=== PATIENT | male | born 1970 | race Caucasian/White ===

== ENCOUNTER 2016-07-21 13:32 | Emergency (ER) | payer OTHER ==
[~2016-07-21] VITALS: Ht 177.8 cm; Wt 80.0 kg
[~2016-07-21 13:32] MED LIST: OLAN5TAB5 PO
[2016-07-21 13:34] VITALS: Ht 177.8 cm; Wt 80.0 kg
[2016-07-21] MEDS ORDERED: SOD CHLORIDE 0.9% 1,000 ML IV STA (14:27)
[2016-07-21] MEDS ORDERED: LORAZEPAM 2 MG INJ IV STA (14:27)
[2016-07-21 15:02] LABS: ADD SCAN DIFF NO
[2016-07-21 15:03] LABS: ABNORMAL IP MESSAGE 1; BASOPHILS % 0.4 % (0.0-2.0); EOSINOPHILS % 0.3 % (0.0-7.0); HEMATOCRIT 34.1 % (42.0-52.0); HEMOGLOBIN 11.8 g/dl (14.0-18.0); LYMPHOCYTES # 0.6 10^3/ul (0.8-2.9); LYMPHOCYTES % 8.2 % (15.0-51.0); MEAN CORPUSCULAR HEMOGLOBIN 29.1 pg (29.0-33.0); MEAN CORPUSCULAR HGB CONC 34.6 g/dl (32.0-37.0); MEAN PLATELET VOLUME 7.8 fl (7.4-10.4); MONOCYTE # 0.7 10^3/ul (0.3-0.9); MONOCYTES % 9.6 % (0.0-11.0); NEUTROPHIL # 5.7 10^3/ul (1.6-7.5); NEUTROPHILS % 81.2 % (39.0-77.0); PLATELET COUNT 209 10^3/UL (140-415); RED BLOOD COUNT 4.06 10^6/ul (4.70-6.10); RED CELL DISTRIBUTION WIDTH 13.2 % (11.5-14.5)
--- NOTE | 2016-07-21 15:04 | ERD ---
ER Documentation Chief Complaint Date/Time DATE: 07/21/16 TIME: 15:01 Chief Complaint psych evaluation HPI 45-year-old man complains of using too much methamphetamines. He has a long history of methamphetamine abuse and has been using it today. He denies suicidal homicidal ideation, no fevers or chills, no vomiting or diarrhea. He says he wants to undergo detox. ROS All systems reviewed and are negative except as per history of present illness. Medications Home Meds Reported Medications Olanzapine* (Zyprexa*) Unknown Strength Tablet, PO DAILY, #30 TAB PT WAS INCARSARATED AND RELASED ON ZYPREXA 05/02/15 Allergies Allergies: Coded Allergies: No Known Allergies (Verified Allergy, Mild, 06/04/15) PMhx/Soc Psychiatric illness and drug abuse History of Surgery: Yes (TONSILLECTOMY) Anesthesia Reaction: No Hx Neurological Disorder: No Hx Respiratory Disorders: No Hx Cardiac Disorders: No Hx Psychiatric Problems: Yes (schizophrenia bipolar) Hx Miscellaneous Medical Probl: Yes (HEP C) Hx Alcohol Use: Yes Hx Substance Use: Yes (MARIJUANA meth) Hx Tobacco Use: Yes (1 PACK PER 3 DAYS) Smoking Status: Current every day smoker FmHx Family History: No diabetes Physical Exam Vitals Vital Signs Date Time Temp Pulse Resp B/P Pulse Ox O2 Delivery O2 Flow Rate FiO2 07/21/16 21:03 98.0 78 18 138/86 100 Room Air 07/21/16 18:00 98.0 78 18 141/84 100 Room Air 07/21/16 13:34 98.0 88 19 139/88 100 Physical Exam GENERAL: Well-developed, well-nourished, appears dehydrated, agitated HEENT: Dry mucous membranes, pink conjunctiva, no cervical spine tenderness or step-off deformities, no goiter, no jaundice or icterus, extraocular movements intact without pain. No submandibular induration, and no pharyngeal erythema NEURO: Alert and oriented 3, cranial nerves II through XII intact bilaterally, pupils equal round reactive to light, no focal deficits or facial asymmetry, sensation intact distally Strength 5/5 in upper and lower extremities bilaterally CARDIAC: Regular rate and rhythm, no murmurs rubs or gallops LUNGS: Clear bilaterally no wheezing crackles or stridor ABDOMEN: Soft nontender, no guarding, no rigidity, no rebound, no psoas sign no obturator sign. Normoactive bowel sounds SKIN: Warm and dry to touch, no abrasions, contusions, or hematomas, no lacerations, no ecchymosis, no target lesions, and without ulcers EXTREMITIES: No clubbing cyanosis or edema, calves are bilaterally symmetrical, no Homans sign, no popliteal cord sign. Distal pulses equal and bilateral PSYCH: Agitated Result Diagram: 07/21/16 1455 07/21/16 1455 Results 24 hrs Laboratory Tests Test 07/21/16 14:55 White Blood Count 7.010^3/ul Red Blood Count 4.0610^6/ul Hemoglobin 11.8g/dl Hematocrit 34.1% Mean Corpuscular Volume 84.0fl Mean Corpuscular Hemoglobin 29.1pg Mean Corpuscular Hemoglobin Concent 34.6g/dl Red Cell Distribution Width 13.2% Platelet Count 82306^3/UL Mean Platelet Volume 7.8fl Neutrophils % 81.2% Lymphocytes % 8.2% Monocytes % 9.6% Eosinophils % 0.3% Basophils % 0.4% Nucleated Red Blood Cells % 0.0/100WBC Neutrophils # 5.710^3/ul Lymphocytes # 0.610^3/ul Monocytes # 0.710^3/ul Eosinophils # 0.010^3/ul Basophils # 0.010^3/ul Nucleated Red Blood Cells # 0.010^3/ul Sodium Level 137mmol/L Potassium Level 2.7mmol/L Chloride Level 107mmol/L Carbon Dioxide Level 22mmol/L Anion Gap 11 Blood Urea Nitrogen 11mg/dl Creatinine 0.52mg/dl Glucose Level 105mg/dl Calcium Level 7.8mg/dl Total Bilirubin 0.4mg/dl Direct Bilirubin 0.00mg/dl Indirect Bilirubin 0.4mg/dl Aspartate Amino Transf (AST/SGOT) 63IU/L Alanine Aminotransferase (ALT/SGPT) 99IU/L Alkaline Phosphatase 53IU/L Total Protein 5.8g/dl Albumin 2.9g/dl Globulin 2.90g/dl Albumin/Globulin Ratio 1.00 Salicylates Level < 1.0mg/dl Acetaminophen Level < 10.0ug/ml Ethyl Alcohol Level < 10.0mg/dl Current Medications Medications (Trade) Dose Ordered Sig/Gerardo Route PRN Reason Start Time Stop Time Status Last Admin Dose Admin Sodium Chloride (NS) 1,000 ml @ 1,000 mls/hr Q1H STAT IV 07/21/16 14:27 07/21/16 15:26 DC 07/21/16 14:38 Lorazepam (Ativan) 2 mg ONCE STAT IV 07/21/16 14:27 07/21/16 14:29 DC 07/21/16 14:38 Potassium Chloride (Klor-Con 20) 40 meq ONCE STAT PO 07/21/16 15:45 07/21/16 15:50 DC 07/21/16 16:01 Procedures/MDM IV line was established 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 I administered 1 L normal saline intravenously and lorazepam 2 mg IV with excellent effect. CBC was unremarkable, electrolytes revealed hypokalemia 2.7 and liver function tests were unremarkable. Aspirin Tylenol levels were negative, alcohol level negative. Patient's vital signs are normal, he has no focal neurologic deficits although he was complaining of a headache so CT scan of the brain was ordered. Follow- up imaging and hypokalemia management deferred to Dr. Lopes, who I signed out to. Currently patient has no complaints of suicidal and homicidal ideation and can be managed as an outpatient, multiple verbal and written recommendations for detox and drug rehab services were provided. Departure Diagnosis: Primary Impression: Methamphetamine abuse Additional Impressions: Headache Headache type: tension-type Headache chronicity pattern: acute headache Intractability: not intractable Qualified Code: G44.209 - Acute non intractable tension-type headache Hypokalemia Condition: Stable JOEL BHARDWAJ MD July 21, 2016 15:04
[2016-07-21 15:32] LABS: ALBUMIN 2.9 g/dl (3.3-4.9); CHLORIDE 107 mmol/L (97-110); SODIUM 137 mmol/L (135-144)
[2016-07-21 15:35] LABS: ALANINE AMINOTRANSFERASE 99 IU/L (13-69); ALKALINE PHOSPHATASE 53 IU/L (42-121); ASPARTATE AMINO TRANSFERASE 63 IU/L (15-46); BILIRUBIN,INDIRECT 0.4 mg/dl (0-1.1); BILIRUBIN,TOTAL 0.4 mg/dl (0.2-1.3); BLOOD UREA NITROGEN 11 mg/dl (7-20); CALCIUM 7.8 mg/dl (8.4-10.2); CARBON DIOXIDE 22 mmol/L (21-31); CREATININE 0.52 mg/dl (0.61-1.24); GLUCOSE 105 mg/dl (70-220); TOTAL PROTEIN 5.8 g/dl (6.1-8.1)
[2016-07-21 15:39] LABS: ACETAMINOPHEN < 10.0 ug/ml (10.0-30.0); ANION GAP 11 (8-16); ETHANOL < 10.0 mg/dl; POTASSIUM 2.7 mmol/L (3.5-5.1); SALICYLATE < 1.0 mg/dl (5.0-30.0)
[2016-07-21] MEDS ORDERED: POTASSIUM CHLORIDE (SR) 20 MEQ TAB PO STA (15:45)
--- NOTE | 2016-07-21 15:45 | RADRPT ---
PROCEDURE: CT Brain without. CLINICAL INDICATION: Altered mental status TECHNIQUE: A CT of the brain was performed utilizing axial sections from the skull base through th e vertex without contrast. The scan was reviewed in soft tissue brain and high frequency resolution bone algorithm windows. Images were reviewed on a high-resolution PACS workstation. The exam CTDI = 45.01 mGy, and the DLP = 720.23 mGy-cm. COMPARISON: None available FINDINGS: The ventricles are normal in size and midline in position. There is no intracranial hemorrhage, mid line shift, or mass effect. No abnormal extra-axial fluid collections are identified. There is pat mare hypoattenuation in the periventricular white matter. There are focal areas of cortical hypoatte nuation in the left frontal left parietal lobe. The macedo-white differentiation is well preserved. The basal cisterns are patent. The posterior fossa is unremarkable. The visualized portions of the orbits are unremarkable. The paranasal sinuses and mastoid air cells are clear. No calvarial fracture or abnormality are identified. The soft tissues are unremarkable . IMPRESSION: Patchy periventricular white matter hypoattenuation. Findings are nonspecific, but can be seen with microvascular ischemic changes, demyelinating or dysmyelinating disorders. There are small foci of cortical hypoattenuation within the left frontal and left parietal lobes, which may reflect recent ischemic injury. MRI is recommended for further evaluation. RPTAT: HH .Mary Jane Vanegas MD, Date Time Electronically viewed and signed by .Mary Jane Vanegas MD, on 07/21/2016 15:45 .G/
--- NOTE | 2016-07-21 16:31 | QN ---
Documentation Comment Patient endorsed to me to follow-up on CT imaging and reevaluate. The patient was here for methamphetamine use. CT shows abnormality concerning for possible ischemic event. The patient has a nonfocal neurologic exam. His potassium has been repleted. An MRI brain has been ordered. Unclear if the CT is nonspecific or truly related to ischemia. Methamphetamine places the patient at increased risk. ct brain IMPRESSION: Patchy periventricular white matter hypoattenuation. Findings are nonspecific, but can be seen with microvascular ischemic changes, demyelinating or dysmyelinating disorders. There are small foci of cortical hypoattenuation within the left frontal and left parietal lobes, which may reflect recent ischemic injury. MRI is recommended for further evaluation. RPTAT: HH MRI pending. ORDRÍGUEZ VERDUZCO MD July 21, 2016 16:31
--- NOTE | 2016-07-21 18:37 | RADRPT ---
PROCEDURE: MR Brain noncontrast. CLINICAL INDICATION: Abnormal head CT. TECHNIQUE: Multiplanar multisequence noncontrast MRI of the brain was performed. COMPARISON: Noncontrast CT of the head from the same day. FINDINGS: Evaluation is moderately limited due to motion degradation. The ventricles and sulci are within normal limits. There are mild to moderate bilateral predominantly subcortical T2 hyperintensities which are nonspec ific. There is no signal abnormality within the left frontal lobe to correspond with CT finding. There is no acute infarction. There is no intracranial hemorrhage or extra-axial fluid collection. There is no mass effect. There is no midline shift. The brainstem is within normal limits. The posterior fossa is unremarkable. The normal intracranial, intravascular flow voids are preserved. The visualized paranasal sinuses are well aerated. The orbits are grossly unremarkable. There is no destructive osseous lesion. IMPRESSION: Evaluation is mildly limited due to motion degradation. 1. No acute infarction or intracranial hemorrhage. 2. Mild to moderate scattered bilateral predominantly subcortical T2 hyperintensities greater than expected for age which are nonspecific but may be related to sequelae of migraines, prior trauma, pr ior infectious/inflammatory etiologies or early chronic microvascular ischemic changes. Further findings as detailed above. RPTAT: HVF .Kota Stark MD, Date Time Electronically viewed and signed by .Kota Stark MD, on 07/21/2016 18:37 .F/
[2016-07-21 21:03] VITALS: BP 138/86; PULSE 78; RESP 18; TEMP 98
== END 2016-07-21 21:07 | disposition home or self-care (01) ==
LOC: E/R 13:32
DX: F15.10 Other stimulant abuse, uncomplicated (principal); G44.209 Tension-type headache, unspecified, not intractable; R40.2142 Coma scale, eyes open, spontaneous, at arrival to emergency department; R40.2252 Coma scale, best verbal response, oriented, at arrival to emergency department; R40.2362 Coma scale, best motor response, obeys commands, at arrival to emergency department; F17.210 Nicotine dependence, cigarettes, uncomplicated; E87.6 Hypokalemia; R93.0 Abnormal findings on diagnostic imaging of skull and head, not elsewhere classified
CPT/HCPCS: 36415; 70450; 70551; 80053; 80306; 85025; 96361; 96374; 96375; J2060; J7030; Z7502; Z7610

== ENCOUNTER 2016-11-29 19:22 | Emergency (ER) | payer OTHER ==
[~2016-11-29] VITALS: Ht 167.6 cm; Wt 80.0 kg
--- NOTE | 2016-11-29 19:24 | QN ---
Documentation Comment Patient seen immediately upon arrival as the patient arrived by ambulance. The patient is complaining of hemorrhoid pain. He will be sent to triage for vital signs and will be seen by another provider. Medical screening exam was initiated. HOLA JJ MD Nov 29, 2016 19:24
[2016-11-29 19:33] VITALS: Ht 167.6 cm; Wt 80.0 kg
[2016-11-29] MEDS ORDERED: ONDANSETRON (ODT) 4 MG TAB ODT STA (21:10)
[2016-11-29] MEDS ORDERED: HYDROCODONE/APAP (5/325) TAB PO ONE (21:30)
[2016-11-29 21:33] LABS: BASOPHILS % 0.5 % (0.0-2.0); EOSINOPHILS # 0.1 10^3/ul (0.0-0.5); EOSINOPHILS % 1.2 % (0.0-7.0); HEMATOCRIT 42.9 % (42.0-52.0); HEMOGLOBIN 13.8 g/dl (14.0-18.0); LYMPHOCYTES # 2.6 10^3/ul (0.8-2.9); LYMPHOCYTES % 34.2 % (15.0-51.0); MEAN CORPUSCULAR HEMOGLOBIN 28.3 pg (29.0-33.0); MEAN CORPUSCULAR HGB CONC 32.2 g/dl (32.0-37.0); MEAN CORPUSCULAR VOLUME 87.9 fl (82.0-101.0); MEAN PLATELET VOLUME 8.7 fl (7.4-10.4); NEUTROPHIL # 3.8 10^3/ul (1.6-7.5); NEUTROPHILS % 49.4 % (39.0-77.0); PLATELET COUNT 195 10^3/UL (140-415); RED BLOOD COUNT 4.88 10^6/ul (4.70-6.10); RED CELL DISTRIBUTION WIDTH 14.6 % (11.5-14.5); WHITE BLOOD COUNT 7.7 10^3/ul (4.8-10.8)
[2016-11-29 21:48] LABS: INR 0.83; PARTIAL THROMBOPLASTIN TIME 26.4 Sec (25.0-35.0); PROTIME 11.4 Sec (12.2-14.2); PT RATIO 0.9
[2016-11-29 21:51] LABS: ALBUMIN 4.1 g/dl (3.3-4.9); ALBUMIN/GLOBULIN RATIO 1.2; BILIRUBIN,INDIRECT 0.2 mg/dl (0-1.1); BILIRUBIN,TOTAL 0.2 mg/dl (0.2-1.3); CALCIUM 9.5 mg/dl (8.4-10.2); CREATININE 0.77 mg/dl (0.61-1.24); POTASSIUM 4.1 mmol/L (3.5-5.1); TOTAL PROTEIN 7.5 g/dl (6.1-8.1)
[2016-11-29 22:27] LABS: ADD UMIC NO; UR ASCORBIC ACID NEGATIVE (NEGATIVE); UR BILIRUBIN (Dip) NEGATIVE (NEGATIVE); UR BLOOD (Dip) NEGATIVE (NEGATIVE); UR CLARITY CLEAR (CLEAR); UR COLOR STRAW (YELLOW); UR GLUCOSE (Dip) NEGATIVE (NEGATIVE); UR KETONES (Dip) NEGATIVE (NEGATIVE); UR LEUKOCYTE ESTERASE (Dip) NEGATIVE Leu/ul (NEGATIVE); UR NITRITE (Dip) NEGATIVE (NEGATIVE); UR SPECIFIC GRAVITY (Dip) 1.011 (1.003-1.030); UR TOTAL PROTEIN (Dip) NEGATIVE (NEGATIVE); UR UROBILINOGEN (Dip) NEGATIVE (NEGATIVE)
--- NOTE | 2016-11-29 22:42 | RADRPT ---
PROCEDURE: CT abdomen and pelvis without contrast. CLINICAL INDICATION: Abdominal pain TECHNIQUE: CT scan of the abdomen and pelvis without contrast was performed. Sagittal and coronal reformatted images were obtained from the axial source images. One or more of the following dose re duction techniques were used: Automated exposure control, adjustment of the mA and/or kV according t o patient size, use of iterative reconstruction technique. CTDI = 10.07 mGy; DLP = 550.76 mGy-cm COMPARISON: None available. FINDINGS: Visualized lower thorax: The lung bases are clear. There is no evidence for pleural effusion. A sm all anterior pericardial effusion is present. The visualized heart is normal in size Liver, gallbladder, pancreas and spleen: The liver is normal and size, contour and attenuation. Th ere is no evidence for a liver mass or ductal dilatation. The gallbladder is unremarkable. No comm on bile duct abnormality is demonstrated. The pancreas is unremarkable. The spleen is normal in si ze. Adrenal glands and genitourinary system: The adrenal glands are normal bilaterally. A tiny 1 mm rig ht interpolar renal calculus is present without evidence of hydronephrosis. An equivocal tiny 1 mm l eft lower pole renal calculus is suggested. There is no evidence of hydronephrosis. The ureters are unremarkable. No urinary bladder abnormality is demonstrated. The prostate gland is normal in siz e. The scrotum included in the field of view shows no abnormality. Gastrointestinal system: The stomach is normal in caliber with no abnormality of significance. The small bowel is normal in caliber with no ileus, obstruction or wall thickening. The appendix and s urrounding fat are within the limits of normal. A moderate to marked amount of fecal debris through out the colon is concerning for constipation. There is no evidence for colitis or diverticulitis. Peritoneum, retroperitoneum, lymph nodes and vessels: The abdominal aorta is normal in caliber. The re is moderate aortic and iliac system atherosclerotic calcification. The inferior vena cava is unr emarkable. There is no evidence for adenopathy or mass. There is no ascites. No pneumoperitoneum i s demonstrated Osseous structures and musculoskeletal findings: There is no fracture, lytic or blastic lesion. No muscular abnormality or soft tissue pathology is present. RPTAT:HJJR IMPRESSION: 1. No evidence of acute intra-abdominal or intrapelvic pathology. 2. Small anterior pericardial effusion. 3. Tiny bilateral nonobstructing intrarenal calculi. 4. Moderate amount of fecal debris throughout the colon concerning for constipation. 5. Atherosclerotic calcification of the aorta and iliac systems. Physician Wagner Date Time Electronically viewed and signed by Scott Persaud Physician on 11/29/2016 22:42 JR/
[2016-11-29] MEDS ORDERED: HYDR26CR PR (23:07)
[2016-11-29] MEDS ORDERED: IBUP-1542 PO (23:07)
[2016-11-29] MEDS ORDERED: PHEN1SUP80 PR (23:07)
--- NOTE | 2016-11-30 04:29 | ERD ---
ER Documentation Chief Complaint Date/Time DATE: 11/30/16 TIME: 04:25 Chief Complaint lower abds pain w/ hemmorhoids pain today HPI This patient is a 46-year-old male presenting to the emergency department with complaints of rectal pain secondary to his hemorrhoids which began last night. Symptoms are constant. Associated symptoms include diarrhea and decreased urinary output. No fevers, chills, or other symptoms currently. ROS All systems reviewed and are negative except as per history of present illness. Medications Home Meds Active Scripts Ibuprofen* (Motrin*) 600 Mg Tab, 600 MG PO Q6, #30 TAB Prov:MARGARET ARRIOLA PA-C 11/29/16 Phenylephrine HCl/[place] Butter* (Preparation H* Suppository) 1 Each Supp.rect, 1 EACH CA BID for 3 Days, #10 SUPP.RECT Prov:MARGARET ARRIOLA PA-C 11/29/16 Hydrocortisone* Rectal (Preparation H* Cream) 1% - 26 Gm Cream.gm., 1 APPLIC CA BID for 5 Days, #1 TUB Prov:MARGARET ARRIOLA PA-C 11/29/16 Reported Medications Olanzapine* (Zyprexa*) Unknown Strength Tablet, PO DAILY, #30 TAB PT WAS INCARSARATED AND RELASED ON ZYPREXA 05/02/15 Allergies Allergies: Coded Allergies: No Known Allergies (Verified Allergy, Mild, 06/04/15) PMhx/Soc History of Surgery: Yes (TONSILLECTOMY) Anesthesia Reaction: No Hx Neurological Disorder: No Hx Respiratory Disorders: No Hx Cardiac Disorders: No Hx Psychiatric Problems: Yes (schizophrenia bipolar) Hx Miscellaneous Medical Probl: Yes (HEP C) Hx Alcohol Use: Yes Hx Substance Use: Yes (MARIJUANA meth) Hx Tobacco Use: Yes (1 PACK PER 3 DAYS) Smoking Status: Current every day smoker Physical Exam Vitals Vital Signs Date Time Temp Pulse Resp B/P Pulse Ox O2 Delivery O2 Flow Rate FiO2 11/29/16 19:33 98.2 95 20 148/78 99 Physical Exam Const: Nontoxic, well-appearing male in no acute distress. Head: Atraumatic Eyes: Normal Conjunctiva ENT: Normal External Ears, Nose and Mouth. Neck: Full range of motion..~ No meningismus. Resp: Clear to auscultation bilaterally RECTAL: Verbal Consent Obtained Sphincter tone is normal. 1 large external hemorrhoid noted at the 3 o'clock position without. No evidence of anal fissure or internal hemorrhoids. No masses palpated. Cardio: Regular rate and rhythm, no murmurs Abd: Soft, non tender, non distended. Normal bowel sounds Skin: No petechiae or rashes Back: No midline or flank tenderness Ext: No cyanosis, or edema Neur: Awake and alert Psych: Normal Mood and Affect Result Diagram: 11/29/16211711/29/162117 Results 24 hrs Laboratory Tests Test 11/29/16 21:18 11/29/16 21:46 White Blood Count 7.710^3/ul Red Blood Count 4.8810^6/ul Hemoglobin 13.8g/dl Hematocrit 42.9% Mean Corpuscular Volume 87.9fl Mean Corpuscular Hemoglobin 28.3pg Mean Corpuscular Hemoglobin Concent 32.2g/dl Red Cell Distribution Width 14.6% Platelet Count 41265^3/UL Mean Platelet Volume 8.7fl Neutrophils % 49.4% Lymphocytes % 34.2% Monocytes % 13.0% Eosinophils % 1.2% Basophils % 0.5% Nucleated Red Blood Cells % 0.0/100WBC Neutrophils # 3.810^3/ul Lymphocytes # 2.610^3/ul Monocytes # 1.010^3/ul Eosinophils # 0.110^3/ul Basophils # 0.010^3/ul Nucleated Red Blood Cells # 0.010^3/ul Prothrombin Time 11.4Sec Prothrombin Time Ratio 0.9 INR International Normalized Ratio 0.83 Activated Partial Thromboplast Time 26.4Sec Sodium Level 140mmol/L Potassium Level 4.1mmol/L Chloride Level 104mmol/L Carbon Dioxide Level 29mmol/L Anion Gap 11 Blood Urea Nitrogen 14mg/dl Creatinine 0.77mg/dl Glucose Level 100mg/dl Calcium Level 9.5mg/dl Total Bilirubin 0.2mg/dl Direct Bilirubin 0.00mg/dl Indirect Bilirubin 0.2mg/dl Aspartate Amino Transf (AST/SGOT) 60IU/L Alanine Aminotransferase (ALT/SGPT) 150IU/L Alkaline Phosphatase 85IU/L Total Protein 7.5g/dl Albumin 4.1g/dl Globulin 3.40g/dl Albumin/Globulin Ratio 1.20 Lipase 111U/L Urine Color STRAW Urine Clarity CLEAR Urine pH 7.0 Urine Specific [place] 1.011 Urine Ketones NEGATIVEmg/dL Urine Nitrite NEGATIVEmg/dL Urine Bilirubin NEGATIVEmg/dL Urine Urobilinogen NEGATIVEmg/dL Urine Leukocyte Esterase NEGATIVELeu/ul Urine Hemoglobin NEGATIVEmg/dL Urine Glucose NEGATIVEmg/dL Urine Total Protein NEGATIVEmg/dl Current Medications Medications (Trade) Dose Ordered Sig/Gerardo Route PRN Reason Start Time Stop Time Status Last Admin Dose Admin Acetaminophen/ Hydrocodone Bitart ([place] (5/325)) 1 tab ONCE ONCE PO 11/29/16 21:30 11/29/16 21:31 DC 11/29/16 21:16 Ondansetron HCl (Zofran Odt) 4 mg ONCE STAT ODT 11/29/16 21:10 11/29/16 21:12 DC 11/29/16 21:16 Procedures/MDM Vision is a 46-year-old male presenting to the emergency department with complaints of hemorrhoid pain and lower abdominal pain. The patient was given p.o. [place] and p.o. Zofran in the department he was feeling improved on reevaluation. CBC showed no evidence of significant leukocytosis or anemia. Chemistry panel did show elevated ALT at 150 an elevated AST at 60, but not significant. Urinalysis was negative for infection or signs of proteinuria. CT abdomen showed no acute intra-abdominal or intrapelvic pathology. PROCEDURE: CT abdomen and pelvis without contrast. CLINICAL INDICATION: Abdominal pain TECHNIQUE: CT scan of the abdomen and pelvis without contrast was performed. Sagittal and coronal reformatted images were obtained from the axial source images. One or more of the following dose reduction techniques were used: Automated exposure control, adjustment of the mA and/or kV according to patient size, use of iterative reconstruction technique. CTDI = 10.07 mGy; DLP = 550.76 mGy-cm COMPARISON: None available. FINDINGS: Visualized lower thorax: The lung bases are clear. There is no evidence for pleural effusion. A small anterior pericardial effusion is present. The visualized heart is normal in size Liver, gallbladder, pancreas and spleen: The liver is normal and size, contour and attenuation. There is no evidence for a liver mass or ductal dilatation. The gallbladder is unremarkable. No common bile duct abnormality is demonstrated. The pancreas is unremarkable. The spleen is normal in size. Adrenal glands and genitourinary system: The adrenal glands are normal bilaterally. A tiny 1 mm right interpolar renal calculus is present without evidence of hydronephrosis. An equivocal tiny 1 mm left lower pole renal calculus is suggested. There is no evidence of hydronephrosis. The ureters are unremarkable. No urinary bladder abnormality is demonstrated. The prostate gland is normal in size. The scrotum included in the field of view shows no abnormality. Gastrointestinal system: The stomach is normal in caliber with no abnormality of significance. The small bowel is normal in caliber with no ileus, obstruction or wall thickening. The appendix and surrounding fat are within the limits of normal. A moderate to marked amount of fecal debris throughout the colon is concerning for constipation. There is no evidence for colitis or diverticulitis. Peritoneum, retroperitoneum, lymph nodes and vessels: The abdominal aorta is normal in caliber. There is moderate aortic and iliac system atherosclerotic calcification. The inferior vena cava is unremarkable. There is no evidence for adenopathy or mass. There is no ascites. No pneumoperitoneum is demonstrated Osseous structures and musculoskeletal findings: There is no fracture, lytic or blastic lesion. No muscular abnormality or soft tissue pathology is present. RPTAT:HJJR IMPRESSION: 1. No evidence of acute intra-abdominal or intrapelvic pathology. 2. Small anterior pericardial effusion. 3. Tiny bilateral nonobstructing intrarenal calculi. 4. Moderate amount of fecal debris throughout the colon concerning for constipation. 5. Atherosclerotic calcification of the aorta and iliac systems. Physician Wagner Date Time Electronically viewed and signed by Physician Wagner on 11/29/2016 22:42 The patient was stable for discharge after workup in the department. No clear etiology for his abdominal pain at this time. He was stable for discharge with prescriptions to control his external hemorrhoids. Low suspicion for life- threatening illness at time of discharge. Strict ER return precautions were discussed. Close follow-up with his primary care physician was advised. Departure Diagnosis: Primary Impression: Hemorrhoids Hemorrhoid type: unspecified Qualified Code: K64.9 - Hemorrhoids, unspecified hemorrhoid type Additional Impression: Abdominal pain Abdominal location: unspecified location Qualified Code: R10.9 - Abdominal pain, unspecified abdominal location Condition: Fair Patient Instructions: Abdominal Pain, Hemorrhoids Additional Instructions: Follow up with your PCP within the next 1-3 days for a repeat evaluation. If you require a referral to a specialist, your Primary Care Provider may be able to provide this for you. In most patient cases, a referral is not required. If you have further questions regarding this matter, please ask your Primary Care Provider. Return the the emergency department immediately if symptoms worsen or change. If you have any questions regarding medications, ask your pharmacist or us before you leave. If any adverse reactions, occur while taking your medications, discontinue the treatment and return to the emergency department immediately. If any new or worsening symptoms, uncontrolled fevers, or other unexplained symptoms occur, return to the emergency department immediately. Take your medications as directed, and complete the entire course of treatment. MARGARET ARRIOLA PA-C Nov 30, 2016 04:29
== END 2016-11-29 23:28 | disposition home or self-care (01) ==
LOC: FTE 19:22
DX: K64.9 Unspecified hemorrhoids (principal); F17.210 Nicotine dependence, cigarettes, uncomplicated
CPT/HCPCS: 74176; 80053; 81003; 83690; 85025; 85610; 85730; Z7502; Z7610

== ENCOUNTER 2017-05-03 19:41 | Emergency (ER) | END 2017-05-04 00:03 | disposition home or self-care (01) ==

== ENCOUNTER 2018-01-30 04:25 | Inpatient (IN) | END 2018-01-31 14:24 | disposition left against medical advice (07) | DRG 872 ==